=== PATIENT | male | born 1990 | race African-American/Black ===

== ENCOUNTER 2017-09-18 09:37 | Emergency (ER) | payer BC, OTHER ==
[~2017-09-18] VITALS: Ht 180.3 cm; Wt 117.9 kg
[2017-09-18 09:40] VITALS: BP_SYST 153
[2017-09-18] MEDS ORDERED: KETOROLAC TROMETHAMINE 30 MG VIAL IM ONE (10:00)
[2017-09-18 10:23] LABS: BASOPHILS # (AUTO) 0.1 K/uL (0.0-0.2); BASOPHILS % (AUTO) 0.7 % (0.0-2.0); EOSINOPHILS # (AUTO) 0.6 K/uL (0.0-0.4); EOSINOPHILS % (AUTO) 6.3 % (0.0-4.0); HEMATOCRIT 48.1 % (36-54); HEMOGLOBIN 16.4 g/dL (14.0-18.0); LYMPHOCYTES # (AUTO) 2.2 K/uL (1.0-5.5); LYMPHOCYTES % (AUTO) 25.2 % (20.5-51.5); MEAN CORPUSCULAR HEMOGLOBIN 28 pg (27-31); MEAN CORPUSCULAR HGB CONC 34 % (32-36); MEAN CORPUSCULAR VOLUME 81 fL (79.0-98.0); MONOCYTES # (AUTO) 0.7 K/uL (0.0-1.0); MONOCYTES % (AUTO) 8.5 % (1.7-9.3); NEUTROPHILS # (AUTO) 5.1 K/uL (1.8-7.7); NEUTROPHILS % (AUTO) 59.3 % (40.0-70.0); PLATELET COUNT (AUTO) 224 K/uL (130-430); RED BLOOD CELL COUNT(AUTO) 5.96 MIL/uL (4.2-6.2); RED CELL DISTRIBUTION WIDTH 13.3 % (9.0-15.0); WHITE BLOOD COUNT (AUTO) 8.7 K/uL (4.8-10.8)
[2017-09-18] MEDS ORDERED: MORPHINE 4 MG/ML INJ. SYRINGE IM ONE (10:30)
[2017-09-18 10:42] LABS: ANION GAP 7 (5-15); CALCIUM 10.1 mg/dL (8.4-11.0); CHLORIDE 104 mmol/L (98-107); CREATININE 0.91 mg/dL (0.55-1.30); GLUCOSE 103 mg/dL (70-99); POTASSIUM 4.6 mmol/L (3.5-5.1); SODIUM SERUM 141 mmol/L (136-145); UREA NITROGEN, BLOOD 9 mg/dL (8-21)
[2017-09-18 10:51] LABS: ALANINE AMINOTRANSFERASE 61 U/L (12-78); ALBUMIN 4.3 g/dL (3.4-4.8); ASPARTATE AMINOTRANSFERASE 27 U/L (10-37); TOTAL BILIRUBIN 0.3 mg/dL (0.0-1.0)
[2017-09-18 10:56] LABS: GFR AFRICAN AMERICAN 127 mL/min (>90)
[2017-09-18 11:25] VITALS: BP_SYST 142
== END 2017-09-18 11:25 | disposition home or self-care (01) ==
LOC: SED 09:37
DX: I30.9 Acute pericarditis, unspecified (principal); F12.90 Cannabis use, unspecified, uncomplicated; J45.909 Unspecified asthma, uncomplicated; Z88.1 Allergy status to other antibiotic agents
CPT/HCPCS: 36415; 71045; 80053; 84484; 85025; 96372; 99285; J1885; J2270

== ENCOUNTER 2018-06-23 15:06 | Emergency (ER) | payer SELFPAY ==
[~2018-06-23] VITALS: Ht 180.3 cm; Wt 113.4 kg
[2018-06-23 15:20] VITALS: BP_SYST 157
[2018-06-23 15:50] VITALS: BP_SYST 145
== END 2018-06-23 15:50 | disposition home or self-care (01) ==
LOC: SED 15:06
DX: J06.9 Acute upper respiratory infection, unspecified (principal); J45.909 Unspecified asthma, uncomplicated; R03.0 Elevated blood-pressure reading, without diagnosis of hypertension; Z88.1 Allergy status to other antibiotic agents
CPT/HCPCS: 99283

== ENCOUNTER 2019-08-18 19:12 | Emergency (ER) | payer SELFPAY ==
[~2019-08-18] VITALS: Ht 170.2 cm; Wt 117.9 kg
--- NOTE | 2019-08-18 19:17 | NUR ---
Patient to ER bed 06 to gown for evaluation. Side rails up.
[2019-08-18 19:18] VITALS: BP_SYST 165
--- NOTE | 2019-08-18 19:19 | NUR ---
Patient brought into the ER by mother, is alert and oriented x4. Patient complains of shortness of breath that started yesterday. Patient has a history of asthma. Yesterday patient did two breathing treatments back to back and started to feel clammy and anxious. At 3am patient woke up from gasping air and felt heavy chest pressure. Patient came into ER today because he continued to feel short of breath and clammy. Patient denies wheezing, cough and fever.
--- NOTE | 2019-08-18 19:19 | NUR ---
ER Dr. cardozo at bedside examining patient.
--- NOTE | 2019-08-18 19:26 | NUR ---
Patient is sitting comfortably in bed and his oxygen saturation is 100% on room air.
[2019-08-18] MEDS ORDERED: LORazepam 1 MG TABLET PO ONE (19:30)
[2019-08-18 19:46] LABS: BASOPHILS % (AUTO) 0.2 % (0.0-2.0); EOSINOPHILS # (AUTO) 0.1 K/uL (0.0-0.4); EOSINOPHILS % (AUTO) 1.3 % (0.0-4.0); HEMATOCRIT 46.9 % (36-54); HEMOGLOBIN 15.8 g/dL (14.0-18.0); LYMPHOCYTES % (AUTO) 27.1 % (20.5-51.5); MEAN CORPUSCULAR HEMOGLOBIN 27 pg (27-31); MEAN CORPUSCULAR HGB CONC 34 % (32-36); MEAN CORPUSCULAR VOLUME 80 fL (79.0-98.0); MONOCYTES % (AUTO) 8.9 % (1.7-9.3); NEUTROPHILS % (AUTO) 62.5 % (40.0-70.0); PLATELET COUNT (AUTO) 222 K/uL (130-430); RED BLOOD CELL COUNT(AUTO) 5.86 MIL/uL (4.2-6.2); RED CELL DISTRIBUTION WIDTH 14.4 % (9.0-15.0); WHITE BLOOD COUNT (AUTO) 11.2 K/uL (4.8-10.8)
[2019-08-18 19:58] LABS: CALCIUM 9.7 mg/dL (8.4-11.0); CREATININE 1.04 mg/dL (0.55-1.30); POTASSIUM 3.7 mmol/L (3.5-5.1)
[2019-08-18 20:04] LABS: TOTAL BILIRUBIN 0.5 mg/dL (0.0-1.0)
[2019-08-18] MEDS ORDERED: ACETAMINOPHEN 500 MG TABLET PO ONE (21:15)
[2019-08-18 21:58] VITALS: BP_SYST 137
--- NOTE | 2019-08-18 22:01 | NUR ---
Patient given written and verbal discharge instructions and verbalizes understanding. ER MD discussed with patient the results and treatment provided. Patient in stable condition. ID arm band removed. Rx of Albuterol given. Patient educated on pain management and to follow up with PMD. Pain Scale 0/10. Opportunity for questions provided and answered. Medication side effect fact sheet provided.
== END 2019-08-18 21:58 | disposition home or self-care (01) ==
LOC: SED 19:12
DX: J45.909 Unspecified asthma, uncomplicated (principal); Z88.8 Allergy status to other drugs, medicaments and biological substances
CPT/HCPCS: 36415; 71045; 80053; 82550-TC; 83880; 84484; 85025; 93005; 99285

== ENCOUNTER 2019-11-02 15:50 | Emergency (ER) | payer BC, SELFPAY ==
[~2019-11-02] VITALS: Ht 180.3 cm; Wt 108.9 kg
[2019-11-02] MEDS ORDERED: FLUT16SP24 (16:52)
[2019-11-02 16:53] VITALS: BP_SYST 142
[2019-11-02] MEDS ORDERED: ALBU90AE INH (16:53)
[2019-11-02] MEDS ORDERED: FLUT1BLS11 INH (16:53)
[2019-11-02 17:55] LABS: BILIRUBIN,URINE NEGATIVE (NEGATIVE); BLOOD, URINE 1+ (NEGATIVE); CLARITY/URINE CLEAR (CLEAR); COLOR,URINE YELLOW (YELLOW); GLUCOSE,URINE NEGATIVE (NEGATIVE); KETONES,URINE NEGATIVE (NEGATIVE); LEUKOCYTE ESTERASE ,URINE NEGATIVE (NEGATIVE); NITRITE, URINE NEGATIVE (NEGATIVE); PROTEIN URINE 2+ (NEGATIVE); UROBILINOGEN,URINE 0.2 (0.2-1.0)
[2019-11-02 18:01] LABS: BASOPHILS % (AUTO) 0.5 % (0.0-2.0); EOSINOPHILS % (AUTO) 0.1 % (0.0-4.0); HEMATOCRIT 48.6 % (36-54); LYMPHOCYTES # (AUTO) 0.8 K/uL (1.0-5.5); MEAN CORPUSCULAR HEMOGLOBIN 26 pg (27-31); MEAN CORPUSCULAR HGB CONC 33 % (32-36); MEAN CORPUSCULAR VOLUME 79 fL (79.0-98.0); MONOCYTES # (AUTO) 0.6 K/uL (0.0-1.0); MONOCYTES % (AUTO) 12.7 % (1.7-9.3); NEUTROPHILS # (AUTO) 3.5 K/uL (1.8-7.7); NEUTROPHILS % (AUTO) 70.7 % (40.0-70.0); PLATELET COUNT (AUTO) 162 K/uL (130-430); RED BLOOD CELL COUNT(AUTO) 6.14 MIL/uL (4.2-6.2); WHITE BLOOD COUNT (AUTO) 4.9 K/uL (4.8-10.8)
[2019-11-02 18:07] LABS: CALCIUM 8.6 mg/dL (8.4-11.0); CREATININE 1.13 mg/dL (0.55-1.30); POTASSIUM 3.7 mmol/L (3.5-5.1)
[2019-11-02 18:13] LABS: ALBUMIN 3.8 g/dL (3.4-4.8); TOTAL BILIRUBIN 0.4 mg/dL (0.0-1.0)
[2019-11-02 18:20] LABS: C-REACTIVE PROTEIN QUANT 1.9 mg/dL (0-0.5)
[2019-11-02 18:25] LABS: BACTERIA,URINE FEW /HPF (None Seen)
[2019-11-02 18:29] LABS: BARBITURATE, URINE NEGATIVE (NEG <=200)
[2019-11-02 18:30] LABS: BENZODIAZEPINE, URINE NEGATIVE (NEG <=150); CANNABINOID, URINE NEGATIVE (NEG <=50); COCAINE, URINE NEGATIVE (NEG <=150); METHAMPHETAMINES SCREEN,URINE NEGATIVE (NEG <=500); OPIATE, URINE NEGATIVE (NEG <=100); PHENCYCLIDINE SCREEN,URINE NEGATIVE (NEG <=25); UR TRICYCLIC ANTIDEPRESSANTS NEGATIVE (NEG <=300); URINE AMPHETAMINE NEGATIVE (NEG <=500); URINE METHADONE NEGATIVE (NEG <=200); URINE OXYCODONE SCREEN NEGATIVE (NEG <=100); URINE PROPOXYPHENE SCREEN NEGATIVE (NEG <=300)
[2019-11-02 18:34] LABS: PROTHROMBIN TIME 10.2 SECS (9.5-12.5)
[2019-11-02] MEDS: ACETAMINOPHEN 500 MG TABLET PO ONE (18:37)
[2019-11-02] MEDS: NACL 0.9% 1,000 ML IV ONE (18:38)
[2019-11-02 21:12] VITALS: BP_SYST 123
== END 2019-11-02 21:12 | disposition home or self-care (01) ==
LOC: SED 15:50
DX: R55 Syncope and collapse (principal); R50.9 Fever, unspecified; R07.89 Other chest pain; R11.10 Vomiting, unspecified; J45.909 Unspecified asthma, uncomplicated; R03.0 Elevated blood-pressure reading, without diagnosis of hypertension; F12.90 Cannabis use, unspecified, uncomplicated; Z88.6 Allergy status to analgesic agent
CPT/HCPCS: 36415; 70450; 71045; 80053; 80307; 81000; 82550; 83605; 84484; 85025; 85610; 85730; 86140; 86710; 93005; 96360; 96361; 99285; C9803; J7030; U0003

== ENCOUNTER 2020-01-07 07:37 | Emergency (ER) | payer BC, SELFPAY ==
[~2020-01-07] VITALS: Ht 180.3 cm; Wt 110.2 kg
[~2020-01-07 07:37] MED LIST: ALBU90AE INH; FLUT16SP24; FLUT1BLS11 INH
[2020-01-07 07:50] VITALS: BP_SYST 151
[2020-01-07 08:36] LABS: CALCIUM 9.7 mg/dL (8.4-11.0); CREATININE 1.18 mg/dL (0.55-1.30); POTASSIUM 3.9 mmol/L (3.5-5.1)
[2020-01-07 08:42] LABS: TOTAL BILIRUBIN 0.5 mg/dL (0.0-1.0)
[2020-01-07 08:44] LABS: BASOPHILS % (AUTO) 0.2 % (0.0-2.0); EOSINOPHILS # (AUTO) 0.2 K/uL (0.0-0.4); EOSINOPHILS % (AUTO) 2.1 % (0.0-4.0); HEMATOCRIT 44.6 % (36-54); HEMOGLOBIN 15.1 g/dL (14.0-18.0); LYMPHOCYTES % (AUTO) 25.1 % (20.5-51.5); MEAN CORPUSCULAR HEMOGLOBIN 27 pg (27-31); MEAN CORPUSCULAR HGB CONC 34 % (32-36); MEAN CORPUSCULAR VOLUME 80 fL (79.0-98.0); MONOCYTES # (AUTO) 0.6 K/uL (0.0-1.0); MONOCYTES % (AUTO) 7.9 % (1.7-9.3); NEUTROPHILS # (AUTO) 5.1 K/uL (1.8-7.7); NEUTROPHILS % (AUTO) 64.7 % (40.0-70.0); PLATELET COUNT (AUTO) 187 K/uL (130-430); RED BLOOD CELL COUNT(AUTO) 5.59 MIL/uL (4.2-6.2); RED CELL DISTRIBUTION WIDTH 14.7 % (9.0-15.0); WHITE BLOOD COUNT (AUTO) 7.8 K/uL (4.8-10.8)
[2020-01-07 09:12] VITALS: BP_SYST 132
== END 2020-01-07 09:14 | disposition home or self-care (01) ==
LOC: SED 07:37
DX: R07.9 Chest pain, unspecified (principal); J45.909 Unspecified asthma, uncomplicated; Z88.8 Allergy status to other drugs, medicaments and biological substances; Z79.899 Other long term (current) drug therapy
CPT/HCPCS: 36415; 71045; 80053; 82550-TC; 84484; 85025; 93005; 99285